=== PATIENT | female | born 1995 | race Caucasian/White ===

== ENCOUNTER 2019-12-10 13:51 | Outpatient (CLI) | payer BC, MEDICAID ==
[~2019-12-10 13:51] MED LIST: ACETAMINOPHEN 325 MG TABLET PO PRN; FERRIC CARBOXYMALTOSE 750 MG in NORMAL SALINE 250 ML IV PRN; NORMAL SALINE 250 ML IV PRN
[2019-12-10] MEDS: DIPHENHYDRAMINE HCL 50 MG/ML VIAL IV PRN ×2 (14:08→14:50)
[2019-12-10 14:40] VITALS: BP 132/88
[2019-12-10] MEDS ORDERED: DIPHENHYDRAMINE HCL 50 MG/ML VIAL ONE (14:45)
== END 2019-12-10 15:25 | disposition home or self-care (01) ==
LOC: II 13:51 → 5TH 13:55 → II 15:25
PROVIDERS: ATTEND Internal Medicine Hematology & Oncology
DX: D50.9 Iron deficiency anemia, unspecified (principal); K90.9 Intestinal malabsorption, unspecified
CPT/HCPCS: 96365; 96375; J1200; J7050; J1439

== ENCOUNTER 2019-12-17 13:45 | Outpatient (CLI) | payer BC, MEDICAID ==
[~2019-12-17 13:45] MED LIST changes: +DIPHENHYDRAMINE HCL 50 MG/ML VIAL IV PRN
[2019-12-17 14:14] VITALS: BP 123/73
== END 2019-12-17 15:10 | disposition home or self-care (01) ==
LOC: II 13:45 → 5TH 13:51 → II 15:10
PROVIDERS: ATTEND Internal Medicine Hematology & Oncology
DX: D50.9 Iron deficiency anemia, unspecified (principal); K90.9 Intestinal malabsorption, unspecified
CPT/HCPCS: 96365; 96375; J1200; J7050; J1439